=== PATIENT | female | born 1960 | race Caucasian/White ===

== ENCOUNTER → 2018-08-19 11:51 | Outpatient (CLI) | payer OTHER, MEDICAID, SELFPAY ==
[2018-08-19 12:56] LABS: TSH w/ Reflex to FT4 1.89 uIU/mL (0.47-4.68)
== END ==
PROVIDERS: PCP Internal Medicine; Visit Provider Registered Nurse
DX: E03.9 Hypothyroidism, unspecified (principal)
CPT/HCPCS: 36415; 84443

== ENCOUNTER 2018-12-14 18:13 | Emergency (ER) | payer OTHER, MEDICAID, SELFPAY ==
[2018-12-14 18:20] VITALS: BP 156/99; PULSE 63; RESP 16; TEMP 36.6; O2SAT 97; BMI 37.5
[2018-12-14 18:46] LABS: Bilirubin Urine UA NEGATIVE (NEGATIVE); Color Urine UA YELLOW; Glucose Urine UA NEGATIVE (Negative); Ketones Urine UA NEGATIVE (NEGATIVE); Leukocyte Esterase Urine UA 2+ (NEGATIVE); Nitrite Urine UA NEGATIVE (Negative); Occult Blood Urine UA 2+ (Negative); Protein Urine UA NEGATIVE (Negative); Specific Gravity Urine UA <=1.005 (1.000-1.035); Urobilinogen Urine UA 0.2 E.U./dL (0.2); pH Urine UA 6.5 (4.5-8.0)
[2018-12-14 18:51] LABS: Appearance Urine UA Slightly Cloudy
[2018-12-14 18:56] LABS: Amorphous Sediment Urine 1+; Bacteria Urine Few (2-10); Culture Indicated Urine Specimen Cultured; RBC Urine 1-5/HPF (0-5/HPF); Squamous Epithelial Cell Urine 0-1 /HPF (0-5/HPF); WBC Urine 5-10/HPF (0-5/HPF)
== END 2018-12-14 19:37 | disposition left against medical advice (07) ==
LOC: ED 19:21
PROVIDERS: Emergency Medicine; Emergency Provider Emergency Medicine; PCP Hospitalist
DX: R10.31 Right lower quadrant pain (principal)
CPT/HCPCS: 81001; 87086; 99282

== ENCOUNTER → 2019-03-18 08:38 | Outpatient (CLI) | payer OTHER, MEDICAID, SELFPAY ==
[2019-03-18 10:04] LABS: Add Manual Diff / Slide Review NO; Basophils Absolute Auto 100 /uL (0-100); Basophils Percent Auto 1.1 % (0-2); Eosinophils Absolute Auto 200 /uL (0-450); Eosinophils Percent Auto 3.1 % (2-4); Hematocrit 38.3 % (36-46); Hemoglobin 12.9 g/dL (12.0-16.0); Lymphocytes Absolute Auto 2000 /uL (1100-4500); Lymphocytes Percent Auto 32.5 % (25-40); Mean Corpuscular HGB Conc 33.7 % (30-36); Mean Corpuscular Hemoglobin 30.4 PG (26-34); Mean Corpuscular Volume 90.2 fL (80-100); Monocytes Absolute Auto 400 /uL (0-900); Monocytes Percent Auto 6.9 % (3-14); Neutrophils Absolute Auto 3600 /uL (1500-7000); Neutrophils Percent Auto 56.4 % (50-75); Platelet Count 253 X10^3/uL (150-400); Red Blood Cell Count 4.25 X10^6/uL (4.0-5.2); Red Cell Distribution Width 13.8 % (11.6-14.8); White Blood Cell Count 6.3 X10^3/uL (4.5-11.0)
[2019-03-18 10:11] LABS: Alanine Aminotransferase 17 IU/L (<35); Albumin 4.1 g/dL (3.5-5.0); Albumin Globulin Ratio 1.7 (1.0-2.8); Alkaline Phosphatase 90 U/L (38-126); Aspartate Aminotransferase 25 IU/L (14-36); Bilirubin Total 0.5 mg/dL (0.2-1.3); Bilirubin Unconjugated 0.3 mg/dL (0.0-1.1); Blood Urea Nitrogen 14 mg/dL (7-17); Calcium 9.3 mg/dL (8.4-10.2); Carbon Dioxide 25 mmol/L (22-32); Chloride 111 mmol/L (98-107); Estimated Glomerular Filt Rate > 60.0 mL/min (>60); Globulin 2.4 g/dL (1.7-4.1); Glucose 82 mg/dL (70-100); HEMOLYSIS < 15 (0-50); Potassium 4.4 mmol/L (3.4-5.1); Sodium 143 mmol/L (137-145); Total Protein 6.5 g/dL (6.3-8.2)
[2019-03-18 10:16] LABS: Hemoglobin A1C% w Est Avg Glu 5.1 % (4.0-6.0)
[2019-03-18 10:35] LABS: Vitamin D 25 Hydroxy (D3) 20.6 ng/mL (30.0-100.0)
[2019-03-18 10:47] LABS: Thyroid Stimulating Hormone 3.99 uIU/mL (0.47-4.68)
[2019-03-18 10:54] LABS: Vitamin B12 298 pg/mL (239-931)
== END ==
PROVIDERS: PCP Hospitalist; Visit Provider Nurse Practitioner Psychiatric/Mental Health
DX: F31.81 Bipolar II disorder (principal)
CPT/HCPCS: 36415; 80053; 80076; 82306; 82607; 83036; 84443; 85025

== ENCOUNTER 2024-07-13 16:43 | Emergency (ER) | payer OTHER, SELFPAY ==
[2024-07-13 16:47] VITALS: BP 138/88; PULSE 85; RESP 20; TEMP 36.6; O2SAT 100; BMI 20.3
--- NOTE | 2024-07-13 16:54 | DI.RAD.S_ITS ---
PROCEDURE: XR FOOT RT MIN 3V INDICATIONS: r/o fx TECHNIQUE: 3 views of the foot were acquired. COMPARISON: None. FINDINGS: Bones: Diffuse significant osteopenia involving the toes. Suspect distal aspect middle phalanx fracture of 3rd toe. Soft tissues: No tibiotalar joint effusion. Achilles tendon appears normal. IMPRESSION: Suspect distal aspect middle phalanx fracture of 3rd toe. Dictated by: Mejia Carroll M.D. on 07/13/2024 at 18:45 Approved by: Mejia Carroll M.D. on 07/13/2024 at 18:46
--- NOTE | 2024-07-13 18:38 | PC.NURSE ---
Called patient twice at different times. I asked registration when she left. They reported that she left about 40 mins ago.
--- NOTE | 2024-07-18 12:28 | PC.NURSE ---
late entry- patient sent this web message on July 16 I was in emergency 2 days ago for X-rays for broken toes. But didn't stay to hear results of X-rays. My question is today my foot is very swollen and painful and discolored. It's numb and tingles. Also looks like bumps on it. Soon I come back in or is there something I can do at home. I'm a little worried. Thanks Carmina Cooley [phone] today 07/18 I called the number listed and left a message for Carmina that the xray results could be accessed via patient portal- and she did have a broken toe and advised her to see her PCP or come back to the ED for ongoing pain, swelling and any issues.
== END 2024-07-13 18:00 | disposition home or self-care (01) ==
PROVIDERS: Emergency Provider Emergency Medicine; PCP Hospitalist
DX: S92.911A Unspecified fracture of right toe(s), initial encounter for closed fracture (principal); X58.XXXA Exposure to other specified factors, initial encounter
CPT/HCPCS: 73630; 99281